=== PATIENT | female | born 1995 | race Caucasian/White ===

== ENCOUNTER 2023-05-05 15:49 | Inpatient (IN) | payer OTHER ==
[~2023-05-05] VITALS: Ht 167.6 cm; Wt 130.9 kg
[2023-05-05] MEDS ORDERED: PRENTAB9 PO (16:07)
[2023-05-05] MEDS ORDERED: ASPI81CH33 PO (16:08)
[2023-05-05] MEDS ORDERED: LABE20TAB PO (16:09)
[2023-05-05 16:16] VITALS: BP 196/94
[2023-05-05] MEDS ORDERED: HOME MED LIST COMPLETE! XX SCH (16:20)
[2023-05-05 16:27] VITALS: BP 194/87
[2023-05-05 16:51] VITALS: BP 170/90
[2023-05-05 17:05] VITALS: BP 145/72
[2023-05-05 17:20] LABS: HEMATOCRIT 32.2 % (36.0-47.0); HEMOGLOBIN 10.3 g/dl (12.0-15.5); MEAN CORPUSCULAR HEMOGLOBIN 27.1 pg (27.0-33.0); MEAN CORPUSCULAR VOLUME 84.7 fl (80.0-96.0); PLATELET COUNT, AUTOMATED 286 10^3/uL (150-450); WHITE BLOOD COUNT 10.9 10^3/uL (4.0-10.0)
[2023-05-05 17:48] VITALS: BP 148/78
[2023-05-05] MEDS ORDERED: miSOPROStol 25MCG 1/4 TABLET PO SCH (20:10)
[2023-05-05] MEDS ORDERED: TRANEXAMIC ACID INJection 1,000 MG in NS 100 ML IV PRN (20:10)
[2023-05-05] MEDS ORDERED: miSOPROStol 50MCG 1/2 TABLET PO ONE (20:10)
[2023-05-05] MEDS ORDERED: LIDOCAINE 1% MDV 20ML VIAL INFIL PRN (20:10)
[2023-05-05] MEDS ORDERED: OXYTOCIN DRIP 30 UNITS in IV 1 EA IV PRN ×4 (20:10)
[2023-05-05] MEDS ORDERED: LR 1,000 ML IV SCH (20:10)
[2023-05-05] MEDS ORDERED: METHYLERGONOVINE MALEATE 0.2MG/ML 1ML VIAL IM PRN (20:10)
[2023-05-05] MEDS ORDERED: LABETALOL 200 MG TAB PO SCH (21:00)
[2023-05-05] MEDS: LABETALOL 200 MG TAB PO SCH (21:30)
[2023-05-06] VITALS (65 sets, daily range): BP systolic 108–187; BP diastolic 58–101; O2SAT 96–99
[2023-05-06] MEDS ORDERED: miSOPROStol 50MCG 1/2 TABLET PO ONE ×2 (06:05→11:30)
[2023-05-06] MEDS: LABETALOL 200 MG TAB PO SCH ×2 (08:00→21:00)
[2023-05-06] MEDS ORDERED: LABETALOL 100MG/20ML VIAL IV STA ×4 (08:37→12:12)
[2023-05-06] MEDS ORDERED: CALCIUM GLUCONATE 1,000 MG in D5W MINI-BAG PLUS 100 ML IV PRN (08:40)
[2023-05-06] MEDS ORDERED: MAGNESIUM *L&D* 4GM/100ML BAG (40MG/ML) As Ordered ONE (09:00)
[2023-05-06] MEDS: LR 1,000 ML IV SCH ×2 (09:15→22:35)
[2023-05-06] MEDS ORDERED: MAG Sulf (L&D) 4 GM/100 ML 4 GM in IV 1 EA IV ONE (09:15)
[2023-05-06] MEDS ORDERED: LABETALOL 100MG/20ML VIAL IV SCH (09:30)
[2023-05-06] MEDS ORDERED: hydrALAZINE 20MG/ML 1ML VIAL IV SCH (09:30)
[2023-05-06] MEDS: MAG Sulf (OBGYN) 20GM/500ML 20,000 MG in IV 1 EA IV SCH ×2 (09:33→19:30)
[2023-05-06] MEDS ORDERED: hydrALAZINE 20MG/ML 1ML VIAL IV PRN (09:45)
[2023-05-06 10:45] LABS: ALBUMIN 2.1 G/DL (3.2-5.2); ALKALINE PHOSPHATASE 130 U/L (46-116); ALT/SGPT 25 U/L (7.0-40); AST/SGOT 22 U/L (<34); BILIRUBIN,TOTAL 0.9 MG/DL (0.3-1.2); BLOOD UREA NITROGEN 9 MG/DL (9-23); CALCIUM LEVEL 8.7 MG/DL (8.5-10.1); CARBON DIOXIDE LEVEL 21 MMOL/L (20-31); CHLORIDE LEVEL 108 MMOL/L (98-107); CREATININE FOR GFR 0.87 MG/DL (0.55-1.30); GLOMERULAR FILTRATION RATE > 60.0 (>60); GLUCOSE, FASTING 104 MG/DL (60-100); SODIUM LEVEL 138 MMOL/L (136-145); TOTAL PROTEIN 5.8 G/DL (5.7-8.2)
[2023-05-06] MEDS: LABETALOL 100MG/20ML VIAL IV PRN ×2 (10:51→11:07)
[2023-05-06 11:01] LABS: APPEARANCE, URINE CLEAR (CLEAR); BACTERIA, URINE AUTO 1+ (NEGATIVE); BILIRUBIN, URINE AUTO NEGATIVE (NEGATIVE); BLOOD, URINE BLOOD 2+ (NEGATIVE); COLOR, URINE YELLOW (YELLOW); GLUCOSE, URINE (UA) AUTO NEGATIVE (NEGATIVE); KETONE, URINE AUTO NEGATIVE (NEGATIVE); LEUKOCYTE ESTERASE, URINE AUTO 1+ (NEGATIVE); MUCUS, URINE SMALL (NEGATIVE); NITRITE, URINE AUTO NEGATIVE (NEGATIVE); PROTEIN, URINE AUTO NEGATIVE (NEGATIVE); RBC, URINE AUTO 1 /HPF (0-3); SPECIFIC GRAVITY URINE AUTO 1.013 (1.002-1.035); SQUAMOUS EPITHELIAL CELL UR AU 2 /HPF (0-6); WBC, URINE AUTO 5 /HPF (0-3)
[2023-05-06 11:23] LABS: TOTAL PROTEIN,RANDOM URINE 21.1 MG/DL (0.0-14.0)
[2023-05-06 11:28] LABS: CREATININE,RANDOM URINE 98.6 MG/DL
[2023-05-06] MEDS ORDERED: hydrALAZINE 20MG/ML 1ML VIAL IV STA (14:50)
[2023-05-06] MEDS ORDERED: OXYTOCIN DRIP 30 UNITS in IV 1 EA IV SCH (17:30)
[2023-05-06] MEDS ORDERED: LR 1,000 ML IV SCH (17:30)
[2023-05-06] MEDS ORDERED: ONDANSETRON 4MG 2ML VIAL IV PRN (19:30)
[2023-05-06] MEDS ORDERED: LR 500 ML IV PRN (19:30)
[2023-05-06] MEDS ORDERED: EPIDURAL/PCA KEYS XX PRN (19:30)
[2023-05-06] MEDS ORDERED: diphenhydrAMINE 50MG/ML VIAL IV PRN (19:30)
[2023-05-06] MEDS ORDERED: NALOXONE INJ 0.4MG/1ML VIAL IV PRN (19:30)
[2023-05-06] MEDS: FENTANYL/ROPIVACAINE/NACL BAG 100 ML EPIDURAL SCH (20:14)
[2023-05-06] MEDS: ePHEDrine SULFATE 25 MG/5 ML(5MG/ML) SYRINGE IVP PRN ×2 (20:32→20:38)
[2023-05-07] VITALS (39 sets, daily range): BP systolic 100–179; BP diastolic 52–108
[2023-05-07] MEDS ORDERED: ACETAMINOPHEN TAB 650MG DOSE (2X325MG) PO PRN (03:55)
[2023-05-07] MEDS ORDERED: RHOGAM 300MCG (1500IU) INJ IM SCH (03:55)
[2023-05-07] MEDS ORDERED: IBUPROFEN 800 MG TAB PO PRN (03:55)
[2023-05-07] MEDS ORDERED: ANUSOL HC CREAM 30GM TOP PRN (03:55)
[2023-05-07] MEDS ORDERED: OXYTOCIN DRIP 30 UNITS in IV 1 EA IV SCH ×4 (03:55)
[2023-05-07] MEDS ORDERED: DIBUCAINE 1% OINTMENT 30GM TOP PRN (03:55)
[2023-05-07] MEDS ORDERED: ONDANSETRON 4MG 2ML VIAL IV PRN (03:55)
[2023-05-07] MEDS ORDERED: DOCUSATE SODIUM 100MG CAPSULE PO PRN (03:55)
[2023-05-07] MEDS: FENTANYL/ROPIVACAINE/NACL BAG 100 ML EPIDURAL SCH (05:30)
[2023-05-07] MEDS: LABETALOL 200 MG TAB PO SCH ×3 (06:56→20:18)
[2023-05-07] MEDS: MAG Sulf (OBGYN) 20GM/500ML 20,000 MG in IV 1 EA IV SCH ×2 (07:37→15:12)
[2023-05-07] MEDS: IBUPROFEN 600MG TAB PO PRN (09:53)
[2023-05-07] MEDS: PRENATAL VITAMINS CHEWABLE TABLET PO SCH (09:53)
[2023-05-07 09:58] LABS: BASO % 0.1 % (0.0-1.0); HEMATOCRIT 26.3 % (36.0-47.0); HEMOGLOBIN 8.4 g/dl (12.0-15.5); LYMPH # 1.3 10^3/uL (1.5-5.0); LYMPH % 7.4 % (24.0-44.0); MEAN CORPUSCULAR HEMOGLOBIN 26.8 pg (27.0-33.0); MEAN CORPUSCULAR HGB CONC 31.9 g/dl (32.0-36.5); MEAN CORPUSCULAR VOLUME 83.8 fl (80.0-96.0); MONO # 0.7 10^3/uL (0.0-0.8); MONO % 4.2 % (2.0-8.0); NEUTROPHILS # 14.9 10^3/uL (1.5-8.5); NEUTROPHILS % 87.8 % (36.0-66.0); PLATELET COUNT, AUTOMATED 280 10^3/uL (150-450); RED BLOOD COUNT 3.14 10^6/uL (4.00-5.40)
[2023-05-07 10:27] LABS: ALBUMIN 1.8 G/DL (3.2-5.2); ALKALINE PHOSPHATASE 113 U/L (46-116); ALT/SGPT 29 U/L (7.0-40); AST/SGOT 35 U/L (<34); BILIRUBIN,TOTAL 0.9 MG/DL (0.3-1.2); BLOOD UREA NITROGEN 13 MG/DL (9-23); CALCIUM LEVEL 6.9 MG/DL (8.5-10.1); CARBON DIOXIDE LEVEL 19 MMOL/L (20-31); CHLORIDE LEVEL 103 MMOL/L (98-107); CREATININE FOR GFR 0.96 MG/DL (0.55-1.30); GLOMERULAR FILTRATION RATE > 60.0 (>60); GLUCOSE, FASTING 124 MG/DL (60-100); POTASSIUM SERUM 4.1 MMOL/L (3.5-5.1); SODIUM LEVEL 133 MMOL/L (136-145); TOTAL PROTEIN 4.6 G/DL (5.7-8.2)
[2023-05-07] MEDS: LR 1,000 ML IV SCH (14:53)
[2023-05-07] MEDS: ACETAMINOPHEN 500 MG TAB PO PRN (22:01)
[2023-05-08] VITALS (9 sets, daily range): BP systolic 103–135; BP diastolic 54–75; O2SAT 98–99
[2023-05-08] MEDS: MAG Sulf (OBGYN) 20GM/500ML 20,000 MG in IV 1 EA IV SCH (01:05)
[2023-05-08] MEDS: LR 1,000 ML IV SCH ×3 (01:06→20:03)
[2023-05-08] MEDS: PRENATAL VITAMINS CHEWABLE TABLET PO SCH (09:00)
[2023-05-08] MEDS: LABETALOL 200 MG TAB PO SCH ×2 (09:00→20:17)
[2023-05-08] MEDS: ACETAMINOPHEN 500 MG TAB PO PRN (10:08)
[2023-05-09 02:00] VITALS: BP 144/82; O2SAT 98
[2023-05-09 03:22] VITALS: BP 133/63
[2023-05-09 05:56] VITALS: BP 134/77; O2SAT 98
[2023-05-09] MEDS: PRENATAL VITAMINS CHEWABLE TABLET PO SCH (08:44)
[2023-05-09] MEDS: IBUPROFEN 600MG TAB PO PRN (08:45)
[2023-05-09 08:47] VITALS: BP 142/64
[2023-05-09] MEDS: LABETALOL 200 MG TAB PO SCH (08:47)
[2023-05-09] MEDS ORDERED: MEASLES,MUMPS,RUBELLA VACCINE INJ (MMR-II) SC.IMMUN ONE (09:00)
[2023-05-09] MEDS ORDERED: LABE20TAB PO (09:28)
[2023-05-09 10:00] VITALS: BP 136/66
[2023-05-09 18:00] VITALS: BP 140/79
== END 2023-05-09 19:42 | disposition home or self-care (01) | DRG 768 ==
LOC: M LDI 15:49 → EDBD 15:49 → M OBS 05-08 03:51
PROVIDERS: ADMIT Obstetrics & Gynecology; ATTEND Obstetrics & Gynecology
PROC: 0DQR0ZZ Repair Anal Sphincter, Open Approach (ICD-10-PCS; principal; 2023-05-05)
PROC: 3E0P7GC Introduction of Other Therapeutic Substance into Female Reproductive, Via Natural or Artificial Opening (ICD-10-PCS; 2023-05-05)
PROC: 10907ZC Drainage of Amniotic Fluid, Therapeutic from Products of Conception, Via Natural or Artificial Opening (ICD-10-PCS; 2023-05-05)
PROC: 10E0XZZ Delivery of Products of Conception, External Approach (ICD-10-PCS; 2023-05-07)
DX: O11.4 Pre-existing hypertension with pre-eclampsia, complicating childbirth (principal); Z37.0 Single live birth; O10.02 Pre-existing essential hypertension complicating childbirth; Z3A.37 37 weeks gestation of pregnancy; O99.214 Obesity complicating childbirth; Z79.82 Long term (current) use of aspirin; Z79.899 Other long term (current) drug therapy; O62.2 Other uterine inertia; O70.21 Third degree perineal laceration during delivery, IIIa